=== PATIENT | male | born 1975 | race Caucasian/White ===

== ENCOUNTER 2017-02-22 15:40 | Emergency (ER) | payer BC ==
[~2017-02-22 15:40] MED LIST: LIBRIUM25 MG PO; MEDROL DOSEPAK4 MG PO; PERCOCET 5/31 TABLET PO; TRAZODONE HCL50 MG PO
== END 2017-02-22 16:30 | disposition left against medical advice (07) ==
LOC: EME 15:40
DX: R07.9 Chest pain, unspecified (principal); Z53.21 Procedure and treatment not carried out due to patient leaving prior to being seen by health care provider
CPT/HCPCS: 93005

== ENCOUNTER 2018-07-14 22:22 | Emergency (ER) | payer BC ==
[~2018-07-14] VITALS: Ht 182.9 cm; Wt 84.1 kg
[2018-07-14] MEDS ORDERED: PEN-VEE K,VEET500 MG PO (23:38)
[2018-07-14] MEDS ORDERED: MOTRIN800 MG PO (23:38)
[2018-07-14] MEDS ORDERED: ULTRAM50 MG PO (23:38)
[2018-07-15 00:11] VITALS: BP 136/95
== END 2018-07-15 00:29 | disposition home or self-care (01) ==
LOC: EME 22:22
DX: K02.9 Dental caries, unspecified (principal)
CPT/HCPCS: 99281; 99284